=== PATIENT | female | born 1985 | race African-American/Black ===

== ENCOUNTER 2016-08-08 08:28 | Emergency (ER) | payer MEDICAID ==
[~2016-08-08] VITALS: Ht 149.9 cm; Wt 75.0 kg
[~2016-08-08 08:28] MED LIST: ALBU8I INH; ESCI10TA PO; PRAV40 PO; ST JTAB PO
[2016-08-08 08:35] VITALS: BP 142/97; PULSE 82; RESP 17; TEMP 98.8; O2SAT 98
--- NOTE | 2016-08-08 08:42 | PD ---
HPI Chief Complaint: Cold / Flu Symptoms Time Seen by Provider: 08:42 Travel History International Travel<30 days: No Contact w/Intl Traveler<30days: No Traveled to known affect area: No History of Present Illness HPI 31-year-old [place] female presents the emergency department with upper respiratory symptoms over the past several days. Patient has had increasing ear pain bilaterally more on the left than the right. She's also had increasing cough and postnasal drip with headache. This had chills but no specific fever. Patient denies smoking history but does have a history of needing inhalers in the past for asthma. She does not have an inhaler currently. Patient denies nausea, vomiting, diarrhea. She is allergic to latex. PFSH Past Medical History Asthma: Yes Blood Disorders: No Anxiety: Yes Depression: Yes Heart Rhythm Problems: No Cancer: No Cardiac Catheterization: No Cardiovascular Problems: Yes High Cholesterol: Yes Chest Pain: No Congestive Heart Failure: No COPD: No Diabetes: No Diminished Hearing: No Endocrine: No Genitourinary: No Hypertension: Yes (at present) Immune Disorder: No Musculoskeletal: Yes (CYST BEHIND RIGHT KNEE) Neurologic: Yes (PINCHED NERVE IN NECK/BACK) Psychiatric: Yes Reproductive: No Respiratory: Yes (ASTHMA) Immunizations Current: Yes Sleep Apnea: No ?: Not LMP: 08/02/16 : 2 Para: 2 Tubal Ligation: Yes Past Surgical History Section: Yes (x2) Coronary Artery Bypass Graft: No Social History Alcohol Use: Yes (OCCASIONAL) Tobacco Use: No Substance Use: No Allergies-Medications (Allergen,Severity, Reaction): Coded Allergies: Latex (Verified Allergy, Mild, Itching, 08/08/16) Reported Meds & Prescriptions Reported Meds & Active Scripts Active Prednisone 20 Mg Tab 20 Mg PO BID Orphenadrine CR (Orphenadrine Citrate) 100 Mg Tab 100 Mg PO Q12HR Levaquin (Levofloxacin) 500 Mg Tab 500 Mg PO DAILY Ventolin Hfa 18 GM Inh (Albuterol Sulfate) 90 Mcg/Act Aer 2 Puff INH Q4-6H PRN Review of Systems Except as stated in HPI: all other systems reviewed are Neg General / Constitutional: Positive: Chills, No: Fever Eyes: No: Visual changes HENT: Positive: Headaches, Sore Throat, Rhinitis, Rhinorrhea, Congestion, Neck Stiffness, Neck Pain, Ear Discharge, Earache Cardiovascular: No: Chest Pain or Discomfort Respiratory: Positive: Cough, No: Shortness of Breath Gastrointestinal: No: Nausea, Vomiting, Diarrhea, Abdominal Pain Genitourinary: No: Dysuria Musculoskeletal: No: Pain Skin: No Rash Neurologic: No: Weakness Psychiatric: No: Depression Endocrine: No: Polydipsia Hematologic/Lymphatic: No: Easy Bruising Physical Exam Narrative GENERAL: Patient appears in no acute distress. SKIN: Warm and dry. Normal color. Normal turgor. HEAD: Atraumatic. Normocephalic. EYES: Pupils equal and round. No scleral icterus. No injection or drainage. ENT: No nasal bleeding or discharge. Mucous membranes pink and moist. Both TMs show bilateral injection, bulging, and dullness with loss of landmarks. Patient has moderate sinus tenderness throughout. Pharynx is injected with cobblestoning and postnasal drip present. NECK: Trachea midline. Supple and nontender CARDIOVASCULAR: Regular rate and rhythm. RESPIRATORY: No accessory muscle use. Diffuse wheezes throughout to auscultation. No rales or rhonchi. Breath sounds equal bilaterally. GASTROINTESTINAL: Abdomen soft, non-tender, nondistended. Hepatic and splenic margins not palpable. MUSCULOSKELETAL: Extremities without clubbing, cyanosis, or edema. No obvious deformities. NEUROLOGICAL: Awake and alert. No obvious cranial nerve deficits. Motor grossly within normal limits. Five out of 5 muscle strength in the arms and legs. Normal speech. PSYCHIATRIC: Appropriate mood and affect; insight and judgment normal. Data Data Last Documented VS Vital Signs Date Time Temp Pulse Resp B/P Pulse Ox O2 Delivery O2 Flow Rate FiO2 08/08/16 08:35 98.8 82 17 142/97 98 Orders Prednisone (Deltasone) (08/08/16 09:00) Albuterol-Ipratropium Neb (Duoneb Neb) (08/08/16 09:00) Sodium Chloride 0.9% Flush (Ns Flush) (08/08/16 09:00) Levofloxacin (Levaquin) (08/08/16 09:00) [facility] Medical Decision Making Medical Screen Exam Complete: Yes Emergency Medical Condition: Yes Differential Diagnosis Bilateral otitis media. Sinusitis. Bronchitis. Wheezing. Narrative Course Patient is medically stable at time of exam. Patient is given 60 mg prednisone by mouth as well as Levaquin 500 mg by mouth. Patient is given DuoNeb 1. Patient will be continued on Levaquin 500 mg daily for 10 days. Patient is given prednisone 20 mg twice a day 5 days. She is given albuterol metered-dose inhaler 2 puffs every 4-6 hours when necessary. Patient should follow with her primary care physician as needed or return to emergency department if symptoms warrant. Diagnosis Primary Impression: Wheezy bronchitis Additional Impression: Otitis media Qualified Code: H66.003 - Acute suppurative otitis media of both ears without spontaneous rupture of tympanic membranes, recurrence not specified Referrals: Primary Care Physician Patient Instructions: General Instructions, How to Use a Metered-Dose Inhaler ( ED), Wheezing (ED) Additional Instructions: Patient is given 60 mg prednisone by mouth as well as Levaquin 500 mg by mouth. Patient is given DuoNeb 1. Patient will be continued on Levaquin 500 mg daily for 10 days. Patient is given prednisone 20 mg twice a day 5 days. She is given albuterol metered-dose inhaler 2 puffs every 4-6 hours when necessary. Patient should follow with her primary care physician as needed or return to emergency department if symptoms warrant. Med/Other Pt SpecificInfo: Prescription(s) given Scripts Prednisone 20 Mg Tab20 Mg PO BID #10 TAB Prov:Giuliano Barton MD 08/08/16 Orphenadrine ER 12 HR (Orphenadrine CR)100 Mg [id number] Mg PO Q12HR #10 TAB Prov:Giuliano Barton MD 08/08/16 Levofloxacin (Levaquin)500 Mg [id number] Mg PO DAILY #10 TAB Prov:Giuliano Barton MD 08/08/16 Albuterol 18 GM Inh (Ventolin Hfa 18 GM Inh)90 Mcg/Act Aer2 Puff INH Q4-6H PRN ( SHORTNESS OF BREATH) #1 INHALER Prov:Giuliano Barton MD 08/08/16 Disposition: 01 DISCHARGE HOME Condition: Stable Ezra Burns Aug 08, 2016 08:42
[2016-08-08] MEDS ORDERED: predniSONE 20 MG TAB PO ONE (09:00)
[2016-08-08] MEDS ORDERED: LEVOFLOXACIN 500 MG TAB PO ONE (09:00)
[2016-08-08] MEDS ORDERED: RESP: ALBUTEROL 2.5 MG/IPRATROPIUM 0.5 MG NEB (SCH) INH ONE (09:00)
[2016-08-08] MEDS ORDERED: SODIUM CHLORIDE 0.9% FLUSH 5 ML FLUSH IVF PRN (09:00)
[2016-08-08] MEDS ORDERED: ORPH100T99 PO (09:16)
[2016-08-08] MEDS ORDERED: PRED20 PO (09:16)
[2016-08-08] MEDS ORDERED: VENTAER INH (09:16)
[2016-08-08] MEDS ORDERED: LEVA500T PO (09:16)
== END 2016-08-08 09:42 | disposition home or self-care (01) ==
LOC: NEPB 08:28
DX: J40 Bronchitis, not specified as acute or chronic (principal); H66.003 Acute suppurative otitis media without spontaneous rupture of ear drum, bilateral; R09.82 Postnasal drip; R51 Headache; I10 Essential (primary) hypertension; E78.00 Pure hypercholesterolemia, unspecified; Z87.09 Personal history of other diseases of the respiratory system; Z86.59 Personal history of other mental and behavioral disorders; Z86.79 Personal history of other diseases of the circulatory system; Z87.39 Personal history of other diseases of the musculoskeletal system and connective tissue; Z86.69 Personal history of other diseases of the nervous system and sense organs
CPT/HCPCS: 94664; 99283; J7512

== ENCOUNTER 2017-01-12 08:34 | Emergency (ER) | payer MEDICAID ==
[~2017-01-12] VITALS: Ht 149.9 cm; Wt 72.0 kg
[~2017-01-12 08:34] MED LIST changes: -ALBU8I INH; -ESCI10TA PO; +LEVA500T PO; +ORPH100T99 PO; -PRAV40 PO; +PRED20 PO; -ST JTAB PO; +VENTAER INH
[2017-01-12 08:36] VITALS: BP 115/60; PULSE 83; RESP 15; TEMP 98.7; O2SAT 100
[2017-01-12] MEDS ORDERED: IBUP200C PO (08:57)
--- NOTE | 2017-01-12 09:04 | PD ---
HPI Chief Complaint: Back/ Neck Pain or Injury Time Seen by Provider: 08:58 Travel History International Travel<30 days: No Contact w/Intl Traveler<30days: No Traveled to known affect area: No History of Present Illness HPI 31-year-old female presents to emergency department with 2 complaints. First complaint is she thinks she has an abscess to her right nipple 3-4 days. Reports nipple discharge around the time of her menses, but denies at this time. Says she's had nipple discharge every month with her. Since her last child was born 2 years ago. Denies change in skin or dimpling. Denies erythema or edema of the Breast. Denies fever, vomiting. Second complaint is left lower back pain since yesterday. 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 His encopresis, incontinence, saddle anesthesias. Denies change in gait. Denies IV drug use or cancer. Denies fever, abdominal pain. Denies dysuria, urgency, frequency, hematuria, hesitancy. Pain is worse with movement. Pain radiates down her left leg. Has taken ibuprofen for symptom management. Symptoms are mild in severity. Allergies to latex. Has no medical complaints. No other modifying factors or associated signs and symptoms. PFSH Past Medical History Asthma: Yes Blood Disorders: No Anxiety: Yes Depression: Yes Heart Rhythm Problems: No Cancer: No Cardiac Catheterization: No Cardiovascular Problems: Yes High Cholesterol: Yes Chest Pain: No Congestive Heart Failure: No COPD: No Diabetes: No Diminished Hearing: No Endocrine: No Genitourinary: No Hypertension: Yes (at present) Immune Disorder: No Musculoskeletal: Yes (CYST BEHIND RIGHT KNEE) Neurologic: Yes (PINCHED NERVE IN NECK/BACK) Psychiatric: Yes Reproductive: No Respiratory: Yes (ASTHMA) Immunizations Current: Yes Sleep Apnea: No ?: Unknown : 2 Para: 2 Tubal Ligation: Yes Past Surgical History Section: Yes (x2) Coronary Artery Bypass Graft: No Social History Alcohol Use: Yes (OCCASIONAL) Tobacco Use: No Substance Use: No Allergies-Medications (Allergen,Severity, Reaction): Coded Allergies: latex (Unverified Allergy, Mild, Itching, 01/12/17) Reported Meds & Prescriptions Reported Meds & Active Scripts Active Ibuprofen 800 Mg Tab 800 Mg PO Q6HR PRN Robaxin (Methocarbamol) 500 Mg Tab 500 Mg PO QID PRN Reported Ibuprofen 200 Mg Cap 200 Mg PO Q4H PRN Review of Systems Except as stated in HPI: all other systems reviewed are Neg Physical Exam Narrative GENERAL: Well-nourished, well-developed female patient, in no acute distress; afebrile, nontoxic-appearing SKIN: Warm and dry. HEAD: Atraumatic. Normocephalic. EYES: Pupils equal and round. No scleral icterus. No injection or drainage. ENT: Mucosa pink and moist. Airway patent. NECK: Trachea midline. BREAST: right Breast is without erythema, edema, warmth to touch. Right nipple with small, less than 0.5 cm, bump that appears to be consistent with a possible clot milk duct; area is without erythema, edema. I was able to express a small amount of milky white discharge from the bump. No signs of infection. No masses or lumps palpated to the right breast. No skin dimpling. CARDIOVASCULAR: Regular rate. RESPIRATORY: No accessory muscle use. GASTROINTESTINAL: Rounded. MUSCULOSKELETAL: Bilateral lower extremities supple and non-tense with 2+ pedal pulses and sensory intact; with full range of motion and 5/5 strength. 2 + DTRs bilaterally. Active dorsiflexion and extension of bilateral feet. Left straight leg raise is positive for low back pain. Ambulatory in room with normal gait. Sitting up in bed at 90. No obvious deformities. No clubbing. No cyanosis. No edema. BACK: CVA tenderness. No midline point tenderness on palpation of the lumbar spine. Tenderness on palpation of left lumbar paraspinal and iliosacral area. No obvious deformities. NEUROLOGICAL: Awake and alert. Oriented 3. No obvious cranial nerve deficits. Motor grossly within normal limits. Normal speech. Moves all extremities. 5/5 strength to all extremities. Sensory intact. PSYCHIATRIC: Appropriate mood and affect; insight and judgment normal. Data Data Last Documented VS Vital Signs Date Time Temp Pulse Resp B/P Pulse Ox O2 Delivery O2 Flow Rate FiO2 01/12/17 08:36 98.7 83 15 115/60 100 Orders Ketorolac Inj (Toradol Inj) (01/12/17 09:15) Orphenadrine Inj (Norflex Inj) (01/12/17 09:15) MDM Medical Decision Making Medical Screen Exam Complete: Yes Emergency Medical Condition: Yes Medical Record Reviewed: Yes Differential Diagnosis Clogged milk duct of nipple, nipple pain, less likely breast abscess, low back pain, sciatica, low back strain Narrative Course 31-year-old female physical exam consistent with right nipple pain secondary to a possible clog milk duct of the nipple that is without signs of infection or abscess and left-sided low back pain with sciatica. Patient is afebrile and nontoxic-appearing. Denies fever, vomiting. Denies encopresis, incontinence, saddle anesthesias. Denies IV drug use or cancer. Patient is ambulatory in the room with normal gait. No midline tenderness on palpation of the lumbar spine. Patient denies urinary symptoms. No CVA tenderness. Toradol and Norflex administered in the ER. Ibuprofen and Robaxin prescribed for home. Instructed patient to do warm compresses to the breast. Discussed signs and symptoms of infection and reasons to return to the emergency department. Instructed patient to follow up with gynecology. Patient provided information for [facility] for follow-up. Instructed patient to follow up with primary care provider. Patient verbalizes understanding and agreement with treatment plan. Patient is medically cleared and stable for discharge. Discussed reasons to return to the emergency department. Patient agrees with treatment plan. The patients vital signs are stable and the patient is stable for outpatient follow-up and treatment. Patient discharged home, stable and in no acute distress. Diagnosis Primary Impression: Nipple pain Additional Impression: Left-sided low back pain with sciatica Qualified Code: M54.42 - Left-sided low back pain with left-sided sciatica, unspecified chronicity Referrals: [facility] Primary Care Physician Patient Instructions: Acute Low Back Pain (ED), General Instructions, Sciatica (ED) Departure Forms: Tests/Procedures, Work Release Enter return to work date: Jan 14, 2017 Additional Instructions: Tylenol or ibuprofen as directed and as needed for pain Robaxin as prescribed and as needed for muscle spasms Heating pad and/or ice to affected area to reduce pain Avoid aggravating activities; increase activity as tolerated Follow-up with primary care provider Return to emergency department immediately with worsening of symptoms Med/Other Pt SpecificInfo: Prescription(s) given Scripts Ibuprofen 800 Mg [id number] Mg PO Q6HR PRN (PAIN) #30 TAB Ref 0 Prov:Ro Liu 01/12/17 Methocarbamol (Robaxin)500 Mg [id number] Mg PO QID PRN (MUSCLE SPASM) #30 TAB Ref 0 Prov:Ro Liu 01/12/17 Disposition: 01 DISCHARGE HOME Condition: Stable Ro Liu Jan 12, 2017 09:04
[2017-01-12] MEDS ORDERED: IBUP800T23 PO (09:07)
[2017-01-12] MEDS ORDERED: ROBA500T PO (09:07)
[2017-01-12] MEDS ORDERED: KETOROLAC TROMETHAMINE 60 MG/2 ML (IM) VIAL IM ONE (09:15)
[2017-01-12] MEDS ORDERED: ORPHENADRINE INJ 60 MG/2 ML AMP IM ONE (09:15)
== END 2017-01-12 09:34 | disposition home or self-care (01) ==
LOC: NEPK 08:34
DX: N64.4 Mastodynia (principal); M54.42 Lumbago with sciatica, left side; J45.909 Unspecified asthma, uncomplicated; F41.9 Anxiety disorder, unspecified; F32.9 Major depressive disorder, single episode, unspecified; E78.00 Pure hypercholesterolemia, unspecified; I10 Essential (primary) hypertension
CPT/HCPCS: 96372; 99284; J1885; J2360

== ENCOUNTER 2017-01-23 16:24 | Emergency (ER) | payer MEDICAID ==
[~2017-01-23 16:24] MED LIST changes: +IBUP200C PO; +IBUP800T23 PO; -LEVA500T PO; -ORPH100T99 PO; -PRED20 PO; +ROBA500T PO; -VENTAER INH
[2017-01-23 16:26] VITALS: BP 135/81; PULSE 81; RESP 28; TEMP 97.8; O2SAT 100
--- NOTE | 2017-01-23 16:38 | PD ---
Physical Exam Date Seen by Provider: Jan 23, 2017 Time Seen by Provider: 16:35 Narrative Pt is a 31 year old female presenting for evaluation of SOB. Pt states this started at 10 am this morning. She has a hx of asthma and anxiety. She also reports fever, weakness, fatigue. Pt has not taken any medications for the fevers [employer]. Pt reports lower abdominal and back pain. Pt states the pain is a 10 /10. Pt tachypneic in triage. Awaiting bed placement. Data Data Last Documented VS Vital Signs Date Time Temp Pulse Resp B/P (MAP) Pulse Ox O2 Delivery O2 Flow Rate FiO2 01/23/17 16:26 97.8 81 28 135/81 (99) 100 MDM Supervised Visit with ISA: Anny Bro Jan 23, 2017 16:38
--- NOTE | 2017-01-23 17:12 | RADRPT ---
EXAM DATE/TIME: 01/23/2017 16:59 [facility] COMPARISON: CHEST PA & LAT, December 03, 2014, 10:55. INDICATIONS : Shortness of breath. MEDICAL HISTORY : Asthma. SURGICAL HISTORY : None. ENCOUNTER: Initial ACUITY: 1 day PAIN SCORE: 0/10 LOCATION: Bilateral chest FINDINGS: PA and lateral views of the chest demonstrate the lungs to be symmetrically aerated without evidence of mass, infiltrate or effusion. There is mild prominence to the cardiac silhouette.. Osseous struc tures are intact. CONCLUSION: Mild prominence to the cardiac silhouette. Correlation suggested. There is no pneumothorax. Jon Salinas MD FACR on January 23, 2017 at 17:08 Board Certified Radiologist. This report was verified electronically.
--- NOTE | 2017-01-23 18:06 | PD ---
HPI . cold symptoms and lower abdominal pain Chief Complaint: Respiratory Symptoms Time Seen by Provider: 18:06 Travel History International Travel<30 days: No Contact w/Intl Traveler<30days: No Traveled to known affect area: No History of Present Illness HPI 31- year old female with a PMHx of Asthma presents to the ED complaining of flu- like symptoms since last night. She reports she had shortness of breath, sore throat, body aches, nausea, vomiting, LLQ/RLQ abdominal pain, fever, chills, headache, and rhinorrhea. She states she tried an over the counter allergy/cold medication, ibuprofen, and Motrin, but had no relief. The patient is also complaining of associated ear pain. She denies any nausea, vomiting, chest pain , etc. PFSH Past Medical History Asthma: Yes Blood Disorders: No Anxiety: Yes Depression: Yes Heart Rhythm Problems: No Cancer: No Cardiac Catheterization: No Cardiovascular Problems: Yes High Cholesterol: Yes Chest Pain: No Congestive Heart Failure: No COPD: No Diabetes: No Diminished Hearing: No Endocrine: No Genitourinary: No Hypertension: Yes (at present) Immune Disorder: No Musculoskeletal: Yes (CYST BEHIND RIGHT KNEE) Neurologic: Yes (PINCHED NERVE IN NECK/BACK) Psychiatric: Yes Reproductive: No Respiratory: Yes (ASTHMA) Immunizations Current: Yes Sleep Apnea: No : 2 Para: 2 Tubal Ligation: Yes Past Surgical History Section: Yes (x2) Coronary Artery Bypass Graft: No Social History Alcohol Use: Yes (OCCASIONAL) Tobacco Use: No Substance Use: No Allergies-Medications (Allergen,Severity, Reaction): Coded Allergies: latex (Unverified Allergy, Mild, Itching, 01/12/17) Reported Meds & Prescriptions Reported Meds & Active Scripts Active Bactrim DS (Sulfamethoxazole-Trimethoprim) 800-160 Mg Tab 1 Tab PO BID Reported Ventolin Hfa 18 GM Inh (Albuterol Sulfate) 90 Mcg/Act Aer 1 Puff INH Q4H PRN Review of Systems General / Constitutional: Positive: Fever, Chills Eyes: No: Diploplia, Blurred Vision, Photophobia, Drainage, Redness, Foreign Body Sensation, Pain, Tearing, Blind Spots, Visual changes, Blindness, Other HENT: Positive: Headaches, Sore Throat, Rhinorrhea, Earache, No: Vertigo, Lightheadedness, Rhinitis, Congestion, Nosebleed, Neck Stiffness, Neck Pain, Masses, Gingival Bleeding, Dental Difficulties, Ear Discharge, Other Cardiovascular: No: Chest Pain or Discomfort, Palpitations, Irregular Rhythm, Tachycardia, Diaphoresis, Syncope, Dyspnea on exertion, Varicosities, Edema, Cyanosis, Varicosities, Phlebitis, Claudication, Other Respiratory: Positive: Shortness of Breath, No: Cough, Wheezing, Sneezing, Orthopnea, Hemoptysis, Stridor, Night Sweats, Pleuritic Pain, Other Gastrointestinal: Positive: Nausea, Vomiting, Abdominal Pain (RLQ and LLQ ), No : Diarrhea, Hematemesis, Hematochezia, Constipation, Changes in Bowel Habits, Indigestion, Dysphagia, Loss of Appetite, Other Genitourinary: No: Urgency, Frequency, Dysuria, Nocturia, Hematuria, Decreased Urinary Output, Oliguria, Hesitancy, Dribbling, Incontinence, Pelvic Pain, Flank Pain, Dyspareunia, Discharge, Dysmenorrhea, Menorrhagia, Metorrhagia, Vaginal Bleeding, Other Musculoskeletal: No: Myalgias, Arthralgias, Limited ROM, Weakness, Cramping, Edema, Pain, Atrophy, Other Skin: No Rash, No Itching, No Dryness, No Lumps, No Hives, No Change in Pigmentation, No Change in nails, No Alopecia, No Lesions, No Breast Lumps, No Breast Tenderness, No Breast Swelling, No Other Neurologic: No: Weakness, Dizziness, Syncope, Focal Abnormalities, Coordination Problem, Tremor, Ataxia, Headache, Change in Mentation, Slurred Speech, Paresthesia, Incontinence, Seizures, Sensory Disturbance, Other Psychiatric: No: Anxiety, Depression, Suicidal Ideations, Disorder of Thought, Mood Disorder, Substance Abuse, Homicidal Ideation, Other Endocrine: No: Heat Intolerance, Cold Intolerance, Polyuria, Polydipsia, Other Hematologic/Lymphatic: No: Easy Bruising, Lymph Node Enlargement, Other Physical Exam Narrative GENERAL: AAO x3. NAD. SKIN: Warm and dry. HEAD: Frontal sinus tenderness. Atraumatic. Normocephalic. EYES: Pupils equal and round. No scleral icterus. No injection or drainage. ENT: Fluid noted in right ear. No nasal bleeding or discharge. Mucous membranes pink and moist.+ frontal and maxillary sinus tenderness NECK: Trachea midline. No JVD. CARDIOVASCULAR: Regular rate and rhythm. No S3, S4, or murmurs. RESPIRATORY: No accessory muscle use. Clear to auscultation. Breath sounds equal bilaterally. No wheezes, rales, or rhonchi. GASTROINTESTINAL: Abdomen soft, mild tenderness to suprapubic area, no rebound or guarding MUSCULOSKELETAL: Extremities without clubbing, cyanosis, or edema. No obvious deformities. NEUROLOGICAL: Awake and alert. No obvious cranial nerve deficits. Motor grossly within normal limits. Five out of 5 muscle strength in the arms and legs. Normal speech. PSYCHIATRIC: Appropriate mood and affect; insight and judgment normal. Data Data Last Documented VS Vital Signs Date Time Temp Pulse Resp B/P (MAP) Pulse Ox O2 Delivery O2 Flow Rate FiO2 01/23/17 16:26 97.8 81 28 135/81 (99) 100 Orders Orders Chest, Pa & Lat (01/23/17 16:38) Complete Blood Count With Diff (01/23/17 18:13) Comprehensive Metabolic Panel (01/23/17 18:13) Lipase (01/23/17 18:13) Urinalysis - C+S If Indicated (01/23/17 18:13) Ed Urine Pregnancytest Poc (01/23/17 18:13) Influenzae A/B Antigen (01/23/17 18:13) Urine Culture (01/23/17 18:35) Potassium Chloride (Kcl) (01/23/17 19:45) Labs Laboratory Tests Test 01/23/17 18:30 01/23/17 18:35 White Blood Count 13.6 TH/MM3 Red Blood Count 3.80 MIL/MM3 Hemoglobin 10.2 GM/DL Hematocrit 31.6 % Mean Corpuscular Volume 83.2 FL Mean Corpuscular Hemoglobin 26.7 PG Mean Corpuscular Hemoglobin Concent 32.1 % Red Cell Distribution Width 17.1 % Platelet Count 200 TH/MM3 Mean Platelet Volume 9.2 FL Neutrophils (%) (Auto) 86.5 % Lymphocytes (%) (Auto) 4.6 % Monocytes (%) (Auto) 8.7 % Eosinophils (%) (Auto) 0.0 % Basophils (%) (Auto) 0.2 % Neutrophils # (Auto) 11.8 TH/MM3 Lymphocytes # (Auto) 0.6 TH/MM3 Monocytes # (Auto) 1.2 TH/MM3 Eosinophils # (Auto) 0.0 TH/MM3 Basophils # (Auto) 0.0 TH/MM3 CBC Comment DIFF FINAL Differential Comment Blood Urea Nitrogen 7 MG/DL Creatinine 0.69 MG/DL Random Glucose 98 MG/DL Total Protein 7.4 GM/DL Albumin 3.6 GM/DL Calcium Level 8.3 MG/DL Alkaline Phosphatase 69 U/L Aspartate Amino Transf (AST/SGOT) 16 U/L Alanine Aminotransferase (ALT/SGPT) 19 U/L Total Bilirubin 0.4 MG/DL Sodium Level 136 MEQ/L Potassium Level 3.2 MEQ/L Chloride Level 106 MEQ/L Carbon Dioxide Level 22.8 MEQ/L Anion Gap 7 MEQ/L Estimat Glomerular Filtration Rate 120 ML/MIN Lipase 53 U/L Urine Color YELLOW Urine Turbidity CLEAR Urine pH 7.0 Urine Specific [place] 1.029 Urine Protein 30 mg/dL Urine Glucose (UA) NEG mg/dL Urine Ketones 80 mg/dL Urine Occult Blood MOD Urine Nitrite NEG Urine Bilirubin NEG Urine Urobilinogen 2.0 MG/DL Urine Leukocyte Esterase NEG Urine RBC 8 /hpf Urine WBC 3 /hpf Urine Squamous Epithelial Cells 2 /hpf Urine Bacteria MOD /hpf Urine Mucus FEW /lpf Microscopic Urinalysis Comment CULTURE INDICATED MDM Medical Decision Making Medical Screen Exam Complete: Yes Emergency Medical Condition: Yes Medical Record Reviewed: Yes Differential Diagnosis Influenza, Pharyngitis, Otitis Media, Sinusitis, UTI Narrative Course 31 yr old female here with cold like symptoms and lower abdominal pain. CXR done in triage. Labs including urine and Influenza ordered. Xray with enlarged cardiac silhouette, no acute process. Labs with slightly elevated WBC, neutrophils and she appears to have UTI. Laboratory Tests Test 01/23/17 18:30 01/23/17 18:35 White Blood Count 13.6 TH/MM3 Red Blood Count 3.80 MIL/MM3 Hemoglobin 10.2 GM/DL Hematocrit 31.6 % Mean Corpuscular Volume 83.2 FL Mean Corpuscular Hemoglobin 26.7 PG Mean Corpuscular Hemoglobin Concent 32.1 % Red Cell Distribution Width 17.1 % Platelet Count 200 TH/MM3 Mean Platelet Volume 9.2 FL Neutrophils (%) (Auto) 86.5 % Lymphocytes (%) (Auto) 4.6 % Monocytes (%) (Auto) 8.7 % Eosinophils (%) (Auto) 0.0 % Basophils (%) (Auto) 0.2 % Neutrophils # (Auto) 11.8 TH/MM3 Lymphocytes # (Auto) 0.6 TH/MM3 Monocytes # (Auto) 1.2 TH/MM3 Eosinophils # (Auto) 0.0 TH/MM3 Basophils # (Auto) 0.0 TH/MM3 CBC Comment DIFF FINAL Differential Comment Blood Urea Nitrogen 7 MG/DL Creatinine 0.69 MG/DL Random Glucose 98 MG/DL Total Protein 7.4 GM/DL Albumin 3.6 GM/DL Calcium Level 8.3 MG/DL Alkaline Phosphatase 69 U/L Aspartate Amino Transf (AST/SGOT) 16 U/L Alanine Aminotransferase (ALT/SGPT) 19 U/L Total Bilirubin 0.4 MG/DL Sodium Level 136 MEQ/L Potassium Level 3.2 MEQ/L Chloride Level 106 MEQ/L Carbon Dioxide Level 22.8 MEQ/L Anion Gap 7 MEQ/L Estimat Glomerular Filtration Rate 120 ML/MIN Lipase 53 U/L Urine Color YELLOW Urine Turbidity CLEAR Urine pH 7.0 Urine Specific [place] 1.029 Urine Protein 30 mg/dL Urine Glucose (UA) NEG mg/dL Urine Ketones 80 mg/dL Urine Occult Blood MOD Urine Nitrite NEG Urine Bilirubin NEG Urine Urobilinogen 2.0 MG/DL Urine Leukocyte Esterase NEG Urine RBC 8 /hpf Urine WBC 3 /hpf Urine Squamous Epithelial Cells 2 /hpf Urine Bacteria MOD /hpf Urine Mucus FEW /lpf Microscopic Urinalysis Comment CULTURE INDICATED Discussed results with patient. Recommend antibiotics for UTI. I think sinus issue is more viral and she likely has a viral process causing her respiratory issues. Recommend outpatient f/u. Diagnosis Primary Impression: Urinary tract infection Qualified Codes: N30.01 - Acute cystitis with hematuria Additional Impression: Acute sinusitis Qualified Codes: J01.10 - Acute frontal sinusitis, unspecified Patient Instructions: General Instructions Departure Forms: Tests/Procedures, Work Release Enter return to work date: Jan 23, 2017 Additional Instructions: Please return to emergency department if your symptoms return or worsen. Follow up with your primary care provider. Take medications as prescribed. Med/Other Pt SpecificInfo: Prescription(s) given Scripts Sulfamethoxazole-Trimethoprim (Bactrim DS) 800-160 Mg Tab 1 TAB PO BID for Infection, #20 TAB 0 Refills Prov: Alison Ch MD 01/23/17 Disposition: DISCHARGE HOME Condition: Stable Iris Sandoval Jan 23, 2017 18:06
[2017-01-23] MEDS ORDERED: VENTAER INH (18:46)
[2017-01-23 18:53] LABS: AUTOMATED NEUTROPHIL # 11.8 TH/MM3 (1.8-7.7); BASOPHIL % 0.2 % (0.0-2.0); HEMATOCRIT 31.6 % (35.0-46.0); HEMO FLAGS DIFF FINAL; LYMPH % 4.6 % (9.0-44.0); LYMPHOCYTE # 0.6 TH/MM3 (1.0-4.8); MEAN CELL VOLUME 83.2 FL (80.0-100.0); MEAN CORPUSCULAR HEMOGLOBIN 26.7 PG (27.0-34.0); MEAN CORPUSCULAR HGB CONC 32.1 % (32.0-36.0); MONO % 8.7 % (0.0-8.0); NEUT % 86.5 % (16.0-70.0); PLATELET COUNT 200 TH/MM3 (150-450); RED CELL DISTRIBUTION WIDTH 17.1 % (11.6-17.2); WHITE BLOOD COUNT 13.6 TH/MM3 (4.0-11.0)
[2017-01-23 18:57] LABS: BACTERIA, URINE MOD /hpf; BLOOD, URINE MOD (NEG); COMMENT (UR) CULTURE INDICATED; CULTURE IF INDICATED CULTURE INDICATED; GLUCOSE,URINE NEG (NEG); KETONE, URINE 80 mg/dL (NEG); MUCUS URINE FEW /lpf (OCC); NITRITE,URINE NEG (NEG); SQUAMOUS EPITHELIAL CELL URINE 2 /hpf (0-5); URINE COLOR YELLOW (YELLW/STRAW)
[2017-01-23 19:21] LABS: ANION GAP 7 MEQ/L (5-15); AST (GOT) 16 U/L (15-37); BICARBONATE 22.8 MEQ/L (21.0-32.0); BLOOD UREA NITROGEN 7 MG/DL (7-18); CHLORIDE 106 MEQ/L (98-107); GLOMERULAR FILTRATION RATE 120 ML/MIN (>89); POTASSIUM 3.2 MEQ/L (3.5-5.1); SODIUM (NA) 136 MEQ/L (136-145)
[2017-01-23 19:22] LABS: ALT (GPT) 19 U/L (10-53)
[2017-01-23 19:24] LABS: ALKALINE PHOSPHATASE 69 U/L (45-117); TOTAL BILIRUBIN ADULT 0.4 MG/DL (0.2-1.0)
[2017-01-23] MEDS ORDERED: BACT800T5 PO (19:36)
[2017-01-23] MEDS ORDERED: POTASSIUM CHLORIDE 10 MEQ CONTROLLED RELEASE TAB PO ONE (19:45)
[2017-01-23 19:49] VITALS: RESP 20
[2017-01-23] MEDS ORDERED: ONDANSETRON HCL 4 MG/2 ML VIAL IM ONE (20:00)
[2017-01-23] MEDS ORDERED: ACETAMINOPHEN 325 MG TAB PO ONE (20:00)
== END 2017-01-23 20:10 | disposition home or self-care (01) ==
LOC: NEPD 16:24
DX: N30.01 Acute cystitis with hematuria (principal); J01.10 Acute frontal sinusitis, unspecified; B96.20 Unspecified Escherichia coli [E. coli] as the cause of diseases classified elsewhere; R07.0 Pain in throat; M79.1 Myalgia; R11.2 Nausea with vomiting, unspecified; R10.30 Lower abdominal pain, unspecified; I10 Essential (primary) hypertension; E78.00 Pure hypercholesterolemia, unspecified; Z87.09 Personal history of other diseases of the respiratory system; Z86.59 Personal history of other mental and behavioral disorders; Z86.79 Personal history of other diseases of the circulatory system; Z87.39 Personal history of other diseases of the musculoskeletal system and connective tissue; Z86.69 Personal history of other diseases of the nervous system and sense organs
CPT/HCPCS: 71020; 80053; 81001; 83690; 84703; 85025; 87077; 87086; 87186; 87804; 96372; 99284; J2405

== ENCOUNTER 2017-07-03 02:01 | Emergency (ER) | payer MEDICAID ==
[~2017-07-03] VITALS: Ht 152.4 cm; Wt 80.0 kg
[~2017-07-03 02:01] MED LIST changes: +BACT800T5 PO; -IBUP200C PO; -IBUP800T23 PO; -ROBA500T PO; +VENTAER INH
[2017-07-03 02:05] VITALS: BP 140/86; PULSE 74; RESP 16; TEMP 97.7; O2SAT 100
[2017-07-03] MEDS ORDERED: ASPIRIN 81 MG CHEW TAB PO ONE (02:15)
[2017-07-03] MEDS ORDERED: SODIUM CHLORIDE 0.9% FLUSH 10 ML FLUSH IVF PRN (02:15)
[2017-07-03 02:19] VITALS: BP_SYST 135; BP_SYST 139; BP_DIAS 77; BP_DIAS 87
--- NOTE | 2017-07-03 02:38 | PD ---
HPI Chief Complaint: Chest Pain Time Seen by Provider: 02:10 Travel History International Travel<30 days: No Contact w/Intl Traveler<30days: No Traveled to known affect area: No History of Present Illness HPI The patient is a 32 year old female who presents to the [facility] emergency department with a history of chest pain that began between 12:30 and 1 AM today. The patient reports that it awoke her from sound sleep. She reports that it was associated with shortness of breath, sensation of having difficulty taking a deep breath. She reports that she tried using her rescue inhaler without any improvement. She denies having any recent cough or congestion, fevers or chills. She denies having any nausea, vomiting, or diarrhea. She denies having any indigestion. She reports that she has had some lower extremity edema that improves with elevating her legs over the last few days. She denies having any calf pain or erythema. She denies having any prior history of DVT or PE. She denies having any prior history of coronary artery disease. The patient reports that the pain has been constant since the onset. She reports that the pain is a pressure/burning/sharp sensation. She reports that the pain radiates to the left axilla and left shoulder. On review of systems otherwise, the patient denies having any neck pain, abdominal pain, vomiting, diarrhea, urinary symptoms, or neurologic symptoms. The patient denies having any recent problems with indigestion, heartburn, or reflux. LMP: June 03, 2017. [facility] Past Medical History Narrative Medical The patient's past medical history is significant for high cholesterol-stopped medications, hypertension, anxiety disorder, and asthma. Asthma: Yes Blood Disorders: No Anxiety: Yes Depression: Yes Heart Rhythm Problems: No Cancer: No Cardiac Catheterization: No Cardiovascular Problems: Yes High Cholesterol: Yes Chest Pain: No Congestive Heart Failure: No COPD: No Diabetes: No Diminished Hearing: No Endocrine: No Genitourinary: No Hypertension: Yes (at present) Immune Disorder: No Musculoskeletal: Yes (CYST BEHIND RIGHT KNEE) Neurologic: Yes (PINCHED NERVE IN NECK/BACK) Psychiatric: Yes Reproductive: No Respiratory: Yes (ASTHMA) Immunizations Current: Yes Sleep Apnea: No Tetanus Vaccination: < 5 Years Influenza Vaccination: No ?: Unknown LMP: 06/03/2017 : 2 Para: 2 Tubal Ligation: Yes Past Surgical History Narrative Surgical The patient's past surgical history is significant for BTL, 2 c-sections. Section: Yes (x2) Coronary Artery Bypass Graft: No Family History Family Myocardial Infarction: Yes Social History Alcohol Use: No Tobacco Use: No Substance Use: No Allergies-Medications (Allergen,Severity, Reaction): Coded Allergies: latex (Unverified Allergy, Mild, Itching, 07/03/17) Reported Meds & Prescriptions Reported Meds & Active Scripts Active Reported Ventolin Hfa 18 GM Inh (Albuterol Sulfate) 90 Mcg/Act Aer 1 Puff INH Q4H PRN Review of Systems Except as stated in HPI: all other systems reviewed are Neg General / Constitutional: No: Fever Eyes: No: Visual changes HENT: No: Headaches, Rhinorrhea, Congestion Cardiovascular: Positive: Chest Pain or Discomfort, Dyspnea on exertion Respiratory: Positive: Shortness of Breath, No: Cough Gastrointestinal: No: Abdominal Pain Genitourinary: No: Dysuria Musculoskeletal: No: Pain Skin: No Rash Neurologic: No: Weakness, Focal Abnormalities, Change in Mentation, Slurred Speech, Sensory Disturbance Psychiatric: No: Depression Endocrine: No: Polydipsia Hematologic/Lymphatic: No: Easy Bruising Physical Exam Narrative General: The patient is a well-developed well-nourished female in no acute distress. Head and Neck exam: Head is normocephalic atraumatic. Eyes: EOMI, pupils are equal round and reactive to light. Nose: Midline septum with pink mucous membranes Mouth: Dentition unremarkable. Moist mucus membranes. Posterior oropharynx is not erythematous. No tonsillar hypertrophy. Uvula midline. Airway patent. Neck: No palpable lymphadenopathy. No nuchal rigidity. No thyromegaly. Cardiovascular: Regular rate and rhythm without murmurs, gallops, or rubs. The patient reports chest wall tenderness on palpation along the left pectoral muscle. There is no step-off or crepitus. No erythema or ecchymosis. No flail segment. Lungs: Clear to auscultation bilaterally. No wheezes, rhonchi, or rales. Abdomen: Soft, without tenderness to palpation in all 4 quadrants of the abdomen. No guarding, rebound, or rigidity. Normal bowel sounds are audible. No tenderness on palpation of McBurney's point. Negative Ly sign. Extremities: No clubbing or cyanosis. The patient has trace pedal edema bilaterally. 2+ pulses in all 4 extremities. No calf tenderness on palpation. Negative Homans sign. No palpable cords. Back: No spinous process tenderness to palpation. No costovertebral angle tenderness to palpation. Neurologic Exam: Grossly nonfocal. Skin Exam: No rash noted. Intact skin that is warm and dry. Data Data Last Documented VS Vital Signs Date Time Temp Pulse Resp B/P (MAP) Pulse Ox O2 Delivery O2 Flow Rate FiO2 07/03/17 02:20 100 Room Air 07/03/17 02:19 135/77 (96) 139/87 (104) 07/03/17 02:05 97.7 74 16 Orders Orders Electrocardiogram (07/03/17 02:14) B-Type Natriuretic Peptide (07/03/17 02:14) Ckmb (Isoenzyme) Profile (07/03/17 02:14) Complete Blood Count With Diff (07/03/17 02:14) Comprehensive Metabolic Panel (07/03/17 02:14) Magnesium (Mg) (07/03/17 02:14) Prothrombin Time / Inr (Pt) (07/03/17 02:14) Act Partial Throm Time (Ptt) (07/03/17 02:14) Troponin I (07/03/17 02:14) Lipase (07/03/17 02:14) Chest, Single Ap (07/03/17 02:14) Ecg Monitoring (07/03/17 02:14) Bilateral Bp Monitoring (07/03/17 02:14) Iv Access Insert/Monitor (07/03/17 02:14) Oximetry (07/03/17 02:14) Oxygen Administration (07/03/17 02:14) Aspirin Chew (Aspirin Chew) (07/03/17 02:15) Sodium Chloride 0.9% Flush (Ns Flush) (07/03/17 02:15) D-Dimer (07/03/17 02:14) Ed Urine Pregnancytest Poc (07/03/17 02:14) CKMB (07/03/17 02:20) CKMB% (07/03/17 02:20) Sodium Chlor 0.9% 1000 Ml Inj (Ns 1000 M (07/03/17 03:45) Ed Discharge Order (2/5/18 04:31) Labs Laboratory Tests Test 07/03/17 02:20 White Blood Count 4.0 TH/MM3 Red Blood Count 3.79 MIL/MM3 Hemoglobin 9.9 GM/DL Hematocrit 30.1 % Mean Corpuscular Volume 79.6 FL Mean Corpuscular Hemoglobin 26.1 PG Mean Corpuscular Hemoglobin Concent 32.8 % Red Cell Distribution Width 16.7 % Platelet Count 221 TH/MM3 Mean Platelet Volume 8.7 FL Neutrophils (%) (Auto) 28.6 % Lymphocytes (%) (Auto) 49.2 % Monocytes (%) (Auto) 16.6 % Eosinophils (%) (Auto) 5.0 % Basophils (%) (Auto) 0.6 % Neutrophils # (Auto) 1.2 TH/MM3 Lymphocytes # (Auto) 2.0 TH/MM3 Monocytes # (Auto) 0.7 TH/MM3 Eosinophils # (Auto) 0.2 TH/MM3 Basophils # (Auto) 0.0 TH/MM3 CBC Comment DIFF FINAL Differential Comment Prothrombin Time 10.9 SEC Prothromb Time International Ratio 1.1 RATIO Activated Partial Thromboplast Time 25.2 SEC D-Dimer Quantitative (PE/DVT) 0.30 MG/L FEU Blood Urea Nitrogen 12 MG/DL Creatinine 0.72 MG/DL Random Glucose 83 MG/DL Total Protein 7.6 GM/DL Albumin 3.8 GM/DL Calcium Level 8.4 MG/DL Magnesium Level 1.8 MG/DL Alkaline Phosphatase 60 U/L Aspartate Amino Transf (AST/SGOT) 31 U/L Alanine Aminotransferase (ALT/SGPT) 20 U/L Total Bilirubin 0.2 MG/DL Sodium Level 139 MEQ/L Potassium Level 3.5 MEQ/L Chloride Level 107 MEQ/L Carbon Dioxide Level 23.5 MEQ/L Anion Gap 9 MEQ/L Estimat Glomerular Filtration Rate 114 ML/MIN Total Creatine Kinase 995 U/L Creatine Kinase MB 2.8 NG/ML Creatine Kinase MB % 0.3 % Troponin I LESS THAN 0.02 NG/ML B-Type Natriuretic Peptide 5 PG/ML Lipase 89 U/L MDM Medical Decision Making Medical Screen Exam Complete: Yes Emergency Medical Condition: Yes Medical Record Reviewed: Yes Interpretation(s) Last Impressions Chest X-Ray 07/03/17 0214 Signed Impressions: Service Date/Time: Monday, July 03, 2017 02:24 - CONCLUSION: No acute cardiopulmonary abnormality is identified. Jonnie Wright MD Differential Diagnosis Muscle strain, versus costochondritis, versus pleurisy, versus pneumonia, versus acute coronary syndrome, versus pulmonary embolism, versus acid reflux Narrative Course During the course of the patients emergency department visit, the patients history, examination, and differential diagnosis were reviewed with the patient. The patient was placed on a nuclear monitoring technician with oximetry and frequent blood pressure monitoring. The patient had IV access obtained and blood work sent for analysis. The patient had an EKG done on arrival that shows a sinus rhythm heart rate of 70, QRS duration is 94 ms QTC is 419 ms without any acute ST segment elevation, T waves are inverted in V1, V2, V3. A review of the electronic medical record reveals in 2015 recurrent admissions for chest pain. The patient underwent cardiac catheterization with evaluation of her coronary arteries which showed no evidence of urinary artery disease. The patient was initially provided aspirin 324 mg by mouth 1, nitroglycerin sublingual times one. The patients laboratory studies were reviewed and remarkable for a white count of 4, hemoglobin 9.9 which is stable compared to previously at 10.2, platelets 221 with 49.2 lymphocytes, monocytes 16.6, CMP is remarkable for calcium of 8.4 , CPK 995 with a normal MB percentage 0.3 suspicious for a musculoskeletal source of the pain, lipase 89, BNP is 5, PT PTT within normal limits, d-dimer 0.30 decreased the likelihood of pulmonary embolism in this patient with no other significant risk factors. Radiology studies were reviewed and remarkable for a chest x-ray that shows no acute cardiopulmonary disease. Given the patient's elevated CPK, the patient was given a liter of normal saline IV fluids. The patient's results were discussed with her. Her electronic medical record was reviewed. She had a cardiac catheterization done in 2015 which ruled out coronary artery disease. The patient's source of the pain appears to be musculoskeletal on examination. The patient will be given a prescription for an anti-inflammatory pain medication and instructed regarding the importance of staying well-hydrated. The patient is resting comfortably and feels better, is alert and in no distress. The patients results and examination findings were discussed with the patient. The repeat examination is unremarkable and benign. The history, exam, diagnostic testing, and current condition do not suggest any significant pathology to warrant further testing, continued ED treatment, admission, or surgical evaluation at this point. The vital signs have been stable. The patient does not have uncontrollable pain, intractable vomiting, or other significant symptoms. The patient's condition is stable and appropriate for discharge. The patient will pursue further outpatient evaluation with a primary care physician or other designated or consulting physician as indicated in the discharge instructions. The patient expressed understanding and was agreeable with this plan. Diagnosis Primary Impression: Chest wall pain Referrals: Primary Care Physician 2 days Patient Instructions: Chest Wall Pain (ED), General Instructions Additional Instructions: The patient is instructed to push fluids and get plenty of rest. The patient is instructed to take an anti-inflammatory pain medication as needed. Med/Other Pt SpecificInfo: Prescription(s) given Scripts Naproxen DR (EC-Naprosyn) 500 Mg Tabdr 500 MG PO BID Y for PAIN GREATER THAN 5, #10 TAB 0 Refills Prov: Alisha Jenkins MD 07/03/17 Disposition: 01 DISCHARGE HOME Condition: Stable Alisha Jenkins MD Jul 03, 2017 02:38
--- NOTE | 2017-07-03 02:45 | RADRPT ---
EXAM DATE/TIME: 07/03/2017 02:24 [facility] COMPARISON: CHEST SINGLE AP, January 10, 2015, 11:28. INDICATIONS : Chest pain. MEDICAL HISTORY : Asthma SURGICAL HISTORY : Tubal ligation. ENCOUNTER: Initial ACUITY: 1 day PAIN SCORE: 6/10 LOCATION: Left chest FINDINGS: Portable AP view of the chest demonstrates a normal-sized cardiac silhouette. No effusion, consolidat ion, or pneumothorax is visualized. The bones and soft tissues demonstrate no acute abnormality. EKG lines overlie the patient. CONCLUSION: No acute cardiopulmonary abnormality is identified. Jonnie Wright MD on July 03, 2017 at 2:43 Board Certified Radiologist. This report was verified electronically.
[2017-07-03 02:48] LABS: AUTOMATED NEUTROPHIL # 1.2 TH/MM3 (1.8-7.7); BASOPHIL % 0.6 % (0.0-2.0); EOSINOPHIL # 0.2 TH/MM3 (0-0.4); HEMATOCRIT 30.1 % (35.0-46.0); HEMOGLOBIN 9.9 GM/DL (11.6-15.3); LYMPH % 49.2 % (9.0-44.0); MEAN CELL VOLUME 79.6 FL (80.0-100.0); MEAN CORPUSCULAR HEMOGLOBIN 26.1 PG (27.0-34.0); MEAN CORPUSCULAR HGB CONC 32.8 % (32.0-36.0); MEAN PLATELET VOLUME 8.7 FL (7.0-11.0); MONO % 16.6 % (0.0-8.0); MONOCYTE # 0.7 TH/MM3 (0-0.9); NEUT % 28.6 % (16.0-70.0); PLATELET COUNT 221 TH/MM3 (150-450); RED BLOOD COUNT 3.79 MIL/MM3 (4.00-5.30); RED CELL DISTRIBUTION WIDTH 16.7 % (11.6-17.2)
[2017-07-03 03:10] LABS: ALBUMIN 3.8 GM/DL (3.4-5.0); ALT (GPT) 20 U/L (10-53); AST (GOT) 31 U/L (15-37); BICARBONATE 23.5 MEQ/L (21.0-32.0); BLOOD UREA NITROGEN 12 MG/DL (7-18); CALCIUM 8.4 MG/DL (8.5-10.1); CHLORIDE 107 MEQ/L (98-107); CREATININE 0.72 MG/DL (0.50-1.00); GLOMERULAR FILTRATION RATE 114 ML/MIN (>89); GLUCOSE,RANDOM 83 MG/DL (74-106); MAGNESIUM 1.8 MG/DL (1.5-2.5); SODIUM (NA) 139 MEQ/L (136-145)
[2017-07-03 03:12] LABS: INTERNATIONAL NORMALIZED RATIO 1.1 RATIO; PROTHROMBIN TIME - PATIENT 10.9 SEC (9.8-11.6)
[2017-07-03 03:13] LABS: D-DIMER 0.3 MG/L FEU (0.00-0.50)
[2017-07-03 03:14] LABS: ALKALINE PHOSPHATASE 60 U/L (45-117); TOTAL BILIRUBIN ADULT 0.2 MG/DL (0.2-1.0); TOTAL PROTEIN 7.6 GM/DL (6.4-8.2); TROPONIN I LESS THAN 0.02 NG/ML (0.02-0.05)
[2017-07-03] MEDS ORDERED: SODIUM CHLOR 0.9% 1000 ML INJ 1,000 ML IV ONE (03:45)
[2017-07-03] MEDS ORDERED: NAPR-810 PO (04:35)
--- NOTE | 2017-07-03 22:04 | EKG ---
Date Performed: 07/03/2017 Time Performed: 02:15:53 PTAGE: 32 years EKG: Sinus rhythm NORMAL ECG PREVIOUS TRACING : 01/10/2015 17.32 DOCTOR: Wilbert Brar Interpretating Date/Time 07/03/2017 22:00:14
== END 2017-07-03 05:29 | disposition home or self-care (01) ==
LOC: NEPC 02:01
DX: R07.89 Other chest pain (principal); R60.0 Localized edema; J45.909 Unspecified asthma, uncomplicated
CPT/HCPCS: 71045; 80053; 82550; 82552; 83690; 83735; 83880; 84484; 84703; 85025; 85379; 85610; 85730; 93005; 99285; J7030